=== PATIENT | female | born 1990 ===

== ENCOUNTER 2022-06-25 09:33 | Outpatient (CLI) | payer OTHER | END 2022-06-25 09:42 | disposition home or self-care (01) | LOC: RAD 09:33 | DX: N96 Recurrent pregnancy loss (principal) ==

== ENCOUNTER 2022-07-24 09:08 | Outpatient (CLI) | payer OTHER | END 2022-07-24 09:27 | disposition home or self-care (01) | LOC: SONOGRAMA 09:08 | DX: D25.9 Leiomyoma of uterus, unspecified (principal) ==